=== PATIENT | male | born 1940 | race Caucasian/White ===

== ENCOUNTER 2017-01-29 13:48 | Emergency (ER) | payer OTHER ==
[2017-01-29 13:55] VITALS: BP 130/72; PULSE 64; RESP 16; TEMP 97.5; O2SAT 92
--- NOTE | 2017-01-29 14:02 | EDPHY ---
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 His mower started making a strange noise. He turned the mower on it's side right as the blade flew off and sliced his leg. The patient is not on anticoagulants. His tetanus is not up to date. He reports no further injuries. REVIEW OF SYSTEMS: A ten point review of systems was performed and is negative with the exception of the items mentioned in the HPI. Past medical history: Hypercholesterolemia. Past surgical history: Denies. Family history: Noncontributory. Social history: . General Appearance: Alert. Vital signs reviewed. Respiratory: Lungs are clear to auscultation; no wheezes, rales, or rhonchi. Cardiovascular: Regular rate and rhythm; no murmur, rub, or gallop. Gastrointestinal: Abdomen is soft and nontender, no masses or organomegaly, bowel sounds normal. Skin: Warm and dry, no rashes on exposed skin, normal color. Extremities: 6cm laceration to the right lateral calf below the knee, bleeding is well controlled. FAROM right knee and ankle. Pulses:2+ dorsalis pedis pulse on the right, neurovascularly intact. Neurological: Alert and oriented. Moving all four extremities easily and equally. Sensation intact to light touch over right lower leg. Strength 5/5 right knee flex/ext, ankle dorsi/plantarflex. Psychiatric: Normal affect. Source: Patient Exam Limitations: No limitations - Personal History Current Tetanus/Diphtheria Vaccine: No Current Tetanus Diphtheria and Acellular Pertussis (TDAP): No Tetanus Vaccine Date: 2006 - Medical/Surgical History Hx Asthma: No Hx Chronic Respiratory Disease: No Hx Diabetes: No Hx Cardiac Disease: No Hx Renal Disease: No Hx Cirrhosis: No Hx Alcoholism: No Hx HIV/AIDS: No Hx Splenectomy or Spleen Trauma: No Other PMH: high cholesterol - Social History Smoking Status: Never smoked Constitutional: Initial Vital Signs Temperature (C) 36.4 C 01/29/17 13:52 Heart Rate 64 01/29/17 13:52 Respiratory Rate 16 01/29/17 13:52 Blood Pressure 130/72 H 01/29/17 13:52 O2 Sat (%) 92 01/29/17 13:52 O2 Delivery Mode Room Air Allergies/Adverse Reactions: No Known Allergies Allergy (Unverified 01/29/17 13:52) Home Medications: Medication Instructions Recorded Lipitor 01/29/17 Medical Decision Making ED Course/Re-evaluation: The patient presents with a 6cm laceration to the right side of his right lower extremity, distal to the knee. No other injuries reported. The PA, Coral Lobo, repaired the laceration. The patient was instructed to keep the area clean. He will be discharged home with suture instructions. - Data Points Medications Given: Discontinued Medications Diphtheria/Tetanus/Acell Pertussis (Boostrix) 0.5 ml IM .ONCE ONE Stop: 01/29/17 14:15 Last Admin: 01/29/17 14: Dose: 0.5 ml Departure - Departure Disposition: Home, Routine, Self-Care Clinical Impression: Laceration Condition: Good Instructions: Care For Your Stitches (ED), Laceration (ED) Additional Instructions: Have your sutures removed in 10 days. You may return to the Emergency Department to have this done, free of charge. Look for signs of infection including fever, increased redness, drainage, swelling, or pain. Referrals: Edgar Chung MD [Primary Care Provider] - As per Instructions Report Scribed for: Shelly Valentin Report Scribed by: Aliza Lutz Date of Report: 01/29/17 Time of Report: 15:06 Physician Review and Approval Statement: 01/29/17 14:02 Portions of this note were transcribed by the medical billing instructor. I, Dr. Shelly Valentin, personally performed the history, physical exam, and medical decision- making; and confirmed the accuracy of the information in the transcribed note.
[2017-01-29] MEDS ORDERED: TDAP ADULT 0.5 ML INJ (BOOSTRIX) IM ONE (14:14)
--- NOTE | 2017-01-29 15:04 | EDPHY ---
ED Progress Note Narrative: Procedure: Laceration repair. Verbal consent was obtained from the patient. The deep, vertical 6 cm laceration on the right superior lower leg anterior portion was anesthetized in the usual fashion. The wound was irrigated, draped and explored to its base with a gloved finger. There were no deep structures involved. No tendon injury was identified. No foreign bodies were identified. The wound was repaired with #11, 5-0 Prolene in simple interrupted pattern. Good hemostasis was achieved. Patient tolerated procedure well. Clean, sterile dressing placed. The procedure was performed by myself.
== END 2017-01-29 15:23 | disposition home or self-care (01) ==
PROC: 0HQKXZZ Repair Right Lower Leg Skin, External Approach (ICD-10-PCS; principal; 2017-01-29)
DX: S81.811A Laceration without foreign body, right lower leg, initial encounter (principal); W28.XXXA Contact with powered lawn mower, initial encounter; Y99.8 Other external cause status; Y93.89 Activity, other specified; Z23 Encounter for immunization